=== PATIENT | female | born 1980 | race Caucasian/White ===

== ENCOUNTER 2020-10-05 13:30 | Emergency (ER) | payer SELFPAY ==
[~2020-10-05] VITALS: Ht 157.5 cm; Wt 73.1 kg
[~2020-10-05 13:30] MED LIST: DAYQUIL PO
--- NOTE | 2020-10-05 14:38 | PHYS DOC ---
Past History Past Medical History: No Pertinent History (JENNIE DELVALLE APRN) Past Surgical History: No Surgical History (JENNIE DELVALLE APRN) Alcohol Use: None Drug Use: None (JENNIE DELVALLE APRN) Adult General Chief Complaint Chief Complaint: COUGH HPI HPI Patient is a 40-year-old female presents emergency department reporting cough and congestion since September 212020. Patient states she is coughing up clear mucus, states since the onset of the cough she now has right ear pain, and is draining clear drainage from her nose. Patient denies sore throat. States it does hurt to cough but denies chest pain or discomfort at this time. Patient denies shortness of breath. Patient denies nausea, vomiting, diarrhea. Patient denies recent fever or chills. Patient states that since she has come down with the symptoms, her and both sons living at home have come down with similar symptoms. Patient states she has been treating with [id number] cough and cold medicines without relief. Patient denies any other physical complaints or physical concerns. Patient states she is a cigarette smoker, denies drug or alcohol use. (JENNIE DELVALLE APRN) Review of Systems Review of Systems 14 body systems of review of systems have been reviewed. See HPI for pertinent positives and negative responses, otherwise all other systems are negative, nonpertinent or noncontributory. (JENNIE DELVALLE APRN) Allergies Allergies Allergies Coded Allergies Type Severity Reaction Last Updated Verified Penicillins Allergy Severe Anaphylaxis 04/01/15 No aspirin Allergy Severe Hives 04/01/15 No erythromycin base Allergy Intermediate EES CAUSES HIVES 04/01/15 Yes (JENNIE DELVALLE APRN) Physical Exam Physical Exam Constitutional: Well developed, well nourished, no acute distress, non-toxic appearance. HENT: Normocephalic, atraumatic, bilateral external ears normal, oropharynx moist, no oral exudates, nose normal. Oropharynx moist, pink, no uvular edema, no peritonsillar edema or erythema, no laryngeal edema appreciated. There is clear postnasal drip. Bilateral nasal turbinates erythematous, clear drainage from bilateral nares, left tympanic membrane with air-fluid levels, intact, left external auditory canal within normal limits, right tympanic membrane intact with purulence behind membrane white in color, landmarks not visible, right external auditory canal within normal limits. No lymphadenopathy of the head or neck appreciated. No drooling, no meningismus. Eyes: PERRLA, EOMI, conjunctiva normal, no discharge. Neck: Normal range of motion, no tenderness, supple, no stridor. No meningismus, no nuchal rigidity appreciated. Cardiovascular:Heart rate regular rhythm, no murmur, heart sounds S1-S2 to auscultation. Lungs & Thorax: Bilateral breath sounds clear to auscultation no adventitious lung sounds appreciated. Abdomen: Bowel sounds normal, soft, no tenderness, no masses, no pulsatile masses. Skin: Warm, dry, no erythema, no rash. Back: No tenderness, no CVA tenderness. Extremities: No tenderness, no cyanosis, no clubbing, ROM intact, no edema. Neurologic: Alert and oriented X 3, normal motor function, normal sensory function, no focal deficits noted. Psychologic: Affect normal, judgement normal, mood normal. (JENNIE DELVALLE APRN) Current Patient Data Vital Signs Vital Signs Date Time Temp Pulse Resp B/P (MAP) Pulse Ox O2 Delivery O2 Flow Rate FiO2 10/05/20 14:07 98.2 114 16 142/94 (110) 96 Room Air (JENNIE DELVALLE APRN) EKG EKG [] (JENNIE DELVALLE APRN) Radiology/Procedures Radiology/Procedures PATIENT: KIESHA LEE JACCOUNT: [id number] : 1980 LOCATION: ER AGE: 40 SEX: F EXAM STATUS: REG ER ORD. PHYSICIAN: JENNIE DELVALLE APRN REASON: COUGH, CONGESTION PROCEDURE: CHEST PA & LATERAL XR CHEST 2V History: Reason: COUGH, CONGESTION / Spl. Instructions: / History: Comparison: AP chest March 07, 2009. Findings: The cardiomediastinal silhouette is normal. Pulmonary vasculature is normal. The lungs are clear. No pleural effusion or pneumothorax is seen. There is no acute bone abnormality. IMPRESSION: No acute cardiopulmonary process. Electronically signed by: Nirmal Hazel MD (10/05/2020 3:43 PM) [id number] DICTATED AND SIGNED BY: NIRMAL HAZEL MD DATE: 10/05/20 1541 CC: JENNIE DELVALLE APRN; PCP,NO ~MTH0 0 (JENNIE DELVALLE APRN) Heart Score C/O Chest Pain: No Risk Factors: Risk Factors: DM, Current or recent (<one month) smoker, HTN, HLP, family history of CAD, obesity. Risk Scores: Risk Factors: DM, Current or recent (<one month) smoker, HTN, HLP, family history of CAD, obesity. (JENNIE DELVALLE APRN) Course & Med Decision Making Course & Med Decision Making Pertinent Labs and Imaging studies reviewed. (See chart for details) 40-year-old female, vital signs reviewed, presents emergency department complaining of cough and congestion since September 21, 2020. Physical examination concerning for right-sided otitis media, chest congestion most likely bronchitis however will order x-ray to rule out acute respiratory process. Will give Tessalon Perle, Decadron IM, 60 Toradol IM for pain and discomfort. Will order ipratropium bromide/albuterol breathing treatment. Patient is a cigarette smoker. Denies drug or alcohol use. Chest x-ray negative for acute pulmonary process, upon reexamination of the patient, patient states that her cough has been relieved tremendously although still having some coughing. Patient states the pain medication relieved her pain. Discussed with patient we will treat for otitis media with doxycycline antibiotic, cough with Tessalon Perle, Medrol Dosepak for viral bronchitis, have patient follow-up with primary care. Patient states she does not have a primary care physician, will recommend DORIS Calderon for primary care. Discussed with patient smoking cessation, increase fluids, will prescribe 600 mg Motrin for discomfort. Patient gave verbal understanding of discharge home instructions, follow-up with PCP, [facility], prescription use, increase fluids, had no further questions or concerns and was discharged home without incident. (JENNIE DELVALLE APRN) Course & Med Decision Making I oversaw on the above date of service of this patient and discussed the care with the INSTRUCTOR [employer]IVATE. I agree with the findings, plan of care, and disposition as doc umented. Electronically signed, Byron Charlton DO (BYRON CHARLTON DO) Dong Disclaimer Dragon Disclaimer This electronic medical record was generated, in whole or in part, using a voice recognition dictation system. (JENNIE DELVALLE APRN) Departure Departure: Impression: Primary Impression: Right otitis media Additional Impressions: Bronchitis URI with cough and congestion Cigarette smoker Disposition: 01 HOME / SELF CARE / HOMELESS Condition: GOOD Referrals: PCP,MILIND (PCP) BRYAN PRESSLEY Patient Instructions: Acute Bronchitis, Otitis Media, Adult, Upper Respiratory Infection, Adult Additional Instructions: You are seen today for a cough that has lasted longer than 10 days, your physical examination showed you have a ear infection on the right, your chest x- ray did not show any signs of pneumonia. I am treating you with Tessalon Perles for cough, doxycycline for ear infection, Medrol Dosepak for bronchitis, please increase fluids at home, I have recommended a primary care provider for you to see however you can call for an appointment with any primary care provider you wish to see. Please stop smoking cigarettes. EMERGENCY DEPARTMENT GENERAL DISCHARGE INSTRUCTIONS Thank you for coming to [facility] (ED) today and trusting us with you care. We trust that you had a positivie experience in our Emergency Department. If you wish to speak to the department management, you may call the director at [phone]. YOUR FOLLOW UP INSTRUCTIONS ARE FOLLOWS: 1. Do you have a private Doctor? If you do not have a private doctor, please ask for a resource list of physicians or clinics that may be able to assist you with follow up care. 2. The Emergency Physician has interpreted your x-rays. The X-Ray specialist will also review them. If there is a change in the findings, you will be notified in 48 hours when at all possible. 3. A lab test or culture has been done, your results will be reviewed and you will be notified if you need a change in treatment. ADDITIONAL INSTRUCTIONS AND INFORMATION: 1. Your care today has been supervised by a physician who is specially trained in emergency care. Many problems require more than one evaluation for a complete diagnosis and treatment. We recommend that you schedule your follow up appointment as recommended to ensure complete treatment of you illness or injury. If you are unable to obtain follow up care and continue to have a problem, or if your condition worsens, we recommend that you return to the ED. 2. We are not able to safely determine your condition over the phone nor are we able to give sound medical advice over the phone. For these safety reasons, if you call for medical advice we will ask you to come to the ED for further evaluation. 3. If you have any questions regarding these discharge instructions please call the ED at [phone]. SAFETY INFORMATION: In the interest of safety, wellness, and injury prevention; we encourage you to wear your sealbelt, if you smoke; quite smoking, and we encourage family to use a protective helmet for bicycling and other sporting events that present an increased risk for head injury. IF YOUR SYMPTOMS WORSEN OR NEW SYMPTOMS DEVELOP, OR YOU HAVE CONCERNS ABOUT YOUR CONDITION; OR IF YOUR CONDITION WORSENS WHILE YOU ARE WAITING FOR YOUR FOLLOW UP APPOINTMENT; EITHER CONTACT YOUR PRIMARY CARE DOCTOR, THE PHYSICIAN WHOSE NAME AND NUMBER YOU WERE GIVEN, OR RETURN TO THE ED IMMEDIATELY. Scripts Ibuprofen (IBUPROFEN) 600 Mg Tablet 600 MG PO TID PRN PRN for PAIN, #20 TAB 0 Refills Prov: JENNIE DELVALLE APRN 10/05/20 Methylprednisolone (MEDROL) 4 Mg Tab.ds.pk 1 PKG PO UD for BRONCHITIS, #1 PKG 0 Refills Prov: JENNIE DELVALLE APRN 10/05/20 Doxycycline Hyclate (DOXYCYCLINE HYCLATE) 100 Mg Capsule 1 CAP PO BID for OTITUS MEDIA, #20 CAP 0 Refills Prov: JENNIE DELVALLE APRN 10/05/20 Benzonatate (TESSALON PERLE) 100 Mg Capsule 1 CAP PO TID for cough, #10 CAP 0 Refills Prov: JENNIE DELVALLE APRN 10/05/20 Problem Qualifiers Primary Impression: Right otitis media Otitis media type: suppurative Chronicity: acute Recurrence: non- recurrent Spontaneous tympanic membrane rupture: without spontaneous rupture Qualified Codes: H66.001 - Acute suppurative otitis media without spontaneous rupture of ear drum, right ear JENNIE DELVALLE APRN October 05, 2020 14:38 BYRON CHARLTON DO October 08, 2020 16:07
[2020-10-05] MEDS ORDERED: KETOROLAC 60 MG/2 ML VIAL. IM ONE (14:45)
[2020-10-05] MEDS ORDERED: DEXAMETHASONE SOD PHOS 10 MG/ML VIAL. IM ONE (14:45)
[2020-10-05] MEDS ORDERED: BENZONATATE 100 MG CAPSULE. PO ONE (14:45)
[2020-10-05] MEDS ORDERED: IPRATRPIUM/ALBUTEROL 0.5/2.5MG 3 ML NEBU. NEB ONE (14:45)
--- NOTE | 2020-10-05 15:45 | RAD ---
XR CHEST 2V History: Reason: COUGH, CONGESTION / Spl. Instructions: / History: Comparison: AP chest March 07, 2009. Findings: The cardiomediastinal silhouette is normal. Pulmonary vasculature is normal. The lungs are clear. No pleural effusion or pneumothorax is seen. There is no acute bone abnormality. IMPRESSION: No acute cardiopulmonary process. Electronically signed by: Nirmal Hazel MD (10/05/2020 3:43 PM) [id number]
[2020-10-05] MEDS ORDERED: IBUP600T16 PO (16:27)
[2020-10-05] MEDS ORDERED: BENZ100C PO (16:27)
[2020-10-05] MEDS ORDERED: METH4TAB2 PO (16:27)
[2020-10-05] MEDS ORDERED: DOXY100C2 PO (16:27)
[2020-10-05 16:51] VITALS: BP 148/70
== END 2020-10-05 18:30 | disposition home or self-care (01) ==
LOC: ER 13:30
DX: H66.91 Otitis media, unspecified, right ear (principal); J40 Bronchitis, not specified as acute or chronic; J06.9 Acute upper respiratory infection, unspecified; F17.210 Nicotine dependence, cigarettes, uncomplicated; Z88.0 Allergy status to penicillin; Z88.6 Allergy status to analgesic agent
CPT/HCPCS: 71046; 94640; 96372; 99284; J1100; J1885